=== PATIENT | female | born 1960 | race Caucasian/White ===

== ENCOUNTER 2023-09-14 21:17 | Inpatient (IN) | payer MEDICARE, OTHER ==
[~2023-09-14] VITALS: Ht 157.5 cm; Wt 83.0 kg
[~2023-09-14 21:17] MED LIST: BACL5TAB PO; BISA10SU95 RC; CALC-494 PO; DOCU100C36 PO; FIBER; MAGN400O6 PO; MULT-594 PO; NA P133E RC
[2023-09-14] MEDS ORDERED: MAG355OR18 PO (21:41)
[2023-09-14] MEDS ORDERED: BISA10SU61 RC (21:41)
[2023-09-14] MEDS ORDERED: DIVA500T2 PO (21:41)
[2023-09-14] MEDS ORDERED: HALO50AM6 IM (21:41)
[2023-09-14] MEDS ORDERED: CLON0.5T4 PO (21:41)
[2023-09-14] MEDS ORDERED: OLAN5TAB3 PO (21:41)
[2023-09-14] MEDS ORDERED: PROP10TA10 PO (21:41)
[2023-09-14] MEDS ORDERED: cogentin PO (21:41)
[2023-09-14] MEDS ORDERED: ACET325T53 PO (21:41)
[2023-09-14] MEDS ORDERED: MAGN400O6 PO (21:41)
[2023-09-14] MEDS ORDERED: MAG HYDROX/AL HYDROX/SIMETH 30 ML LIQUID UDC PO PRN ×2 (21:45→22:30)
[2023-09-14] MEDS ORDERED: MAGNESIUM HYDROXIDE 30 ML LIQUID UDC PO PRN ×3 (21:45→22:30)
[2023-09-14] MEDS ORDERED: ACETAMINOPHEN 325 MG TABLET PO PRN (21:45)
[2023-09-14] MEDS ORDERED: LORAZEPAM 1 MG TABLET PO PRN (21:45)
[2023-09-14 21:50] VITALS: BP 126/64; TEMP 97.8; O2SAT 100
[2023-09-14] MEDS: BLOOD SUGAR DIAGNOSTIC 1 EACH STRIP VI ONE (22:07)
[2023-09-14] MEDS ORDERED: FLEET ENEMA 133 ML BOTTLE RC PRN (22:30)
[2023-09-14] MEDS ORDERED: ACETAMINOPHEN 325 MG TABLET-SA PATIENTS-PAIN ONLY PO PRN (22:30)
[2023-09-14] MEDS ORDERED: BISACODYL 10 MG SUPP.RECT RC PRN ×2 (22:30)
[2023-09-15] MEDS ORDERED: HYDROXYZINE PAMOATE 25 MG CAPSULE PO PRN (08:00)
[2023-09-15 08:16] LABS: ALBUMIN 3.1 g/dL (3.4-5.0); BILIRUBIN,TOTAL 0.3 mg/dL (0.2-1.0); CALCIUM 9.1 mg/dL (8.5-10.1); CREATININE 0.7 mg/dL (0.6-1.3); POTASSIUM 4.2 mmol/L (3.5-5.1); TOTAL PROTEIN, SERUM 7.2 g/dL (6.4-8.2)
[2023-09-15 08:19] VITALS: BP 129/53; TEMP 98.6; O2SAT 98
[2023-09-15] MEDS: BACLOFEN 10 MG TABLET PO SCH (08:40)
[2023-09-15] MEDS: MULTIVITAMINS,THERAPEUTIC TABLET PO SCH (08:40)
[2023-09-15] MEDS: risperiDONE 2 MG TABLET PO SCH (08:41)
[2023-09-15] MEDS: DIVALPROEX 500 MG TABLET.DR PO SCH (08:47)
[2023-09-15] MEDS: BENZTROPINE MESYLATE 0.5 MG TABLET PO SCH (08:47)
[2023-09-15] MEDS: CLONAZEPAM 0.5 MG TABLET PO SCH (08:47)
[2023-09-15] MEDS: DOCUSATE SODIUM 250 MG CAPSULE PO SCH (09:00)
[2023-09-15] MEDS: PROPRANOLOL HCL 10 MG TABLET PO SCH (09:00)
[2023-09-15] MEDS ORDERED: DOCUSATE SODIUM 100 MG CAPSULE PO SCH (09:00)
[2023-09-15] MEDS: CALCIUM CARBONATE 500 MG TABLET PO SCH (09:19)
[2023-09-15] MEDS ORDERED: FLEET ENEMA 133 ML BOTTLE RC PRN (14:23)
[2023-09-15 16:03] VITALS: BP 103/57; TEMP 98.4; O2SAT 98
[2023-09-15 19:33] VITALS: BP 130/60; TEMP 98.1; O2SAT 96
[2023-09-15] MEDS: CEphaleXIN 500 MG CAPSULE PO SCH (20:29)
[2023-09-16 07:56] VITALS: BP 127/95; TEMP 98; O2SAT 98
[2023-09-16] MEDS ORDERED: BACLOFEN 10 MG TABLET PO SCH (09:00)
[2023-09-16] MEDS ORDERED: ACET-2605 PO (10:35)
[2023-09-16 15:20] VITALS: BP_SYST 104; BP_SYST 142; BP_DIAS 64; BP_DIAS 66; TEMP 98; O2SAT 98
[2023-09-16] MEDS: BACLOFEN 10 MG TABLET PO SCH (17:00)
[2023-09-16 19:54] VITALS: BP 136/68; TEMP 98.2; O2SAT 98
[2023-09-17 07:30] VITALS: BP 96/55; TEMP 98; O2SAT 98
[2023-09-17] MEDS: HALOPERIDOL LACTATE 5 MG/1 ML VIAL IM PRN (08:08)
[2023-09-17] MEDS: diphenhydrAMINE 50 MG/1 ML VIAL IM PRN (08:08)
[2023-09-17 15:27] VITALS: BP 106/52; TEMP 98.2; O2SAT 95
[2023-09-17 20:00] VITALS: BP 129/88; TEMP 98; O2SAT 97
[2023-09-18 08:06] VITALS: BP 130/55; TEMP 98; O2SAT 98
[2023-09-18] MEDS: risperiDONE 2 MG TABLET PO SCH (09:27)
[2023-09-18 15:41] VITALS: BP 139/92; TEMP 98; O2SAT 92
[2023-09-18 20:00] VITALS: BP 113/54; TEMP 98; O2SAT 98
[2023-09-19 07:49] VITALS: BP 132/67; TEMP 98; O2SAT 98
[2023-09-19 14:45] VITALS: BP 124/67; TEMP 98.2; O2SAT 92
[2023-09-19] MEDS: CLOTRIMAZOLE 1% CREAM 30 GM TUBE TOP SCH (17:52)
[2023-09-19 19:55] VITALS: BP 104/50; TEMP 98; O2SAT 99
[2023-09-20 07:53] VITALS: BP 122/67; TEMP 97.8; O2SAT 96
[2023-09-20 16:17] VITALS: BP 110/73; TEMP 97.9; O2SAT 96
[2023-09-20 20:41] VITALS: BP 121/72; TEMP 98; O2SAT 98
[2023-09-21 07:55] VITALS: BP 127/72; TEMP 97.7; O2SAT 97
[2023-09-21] MEDS: DIVALPROEX 500 MG TABLET.DR PO SCH (08:13)
[2023-09-21] MEDS: risperiDONE 2 MG TABLET PO SCH (08:15)
[2023-09-21] MEDS: BENZTROPINE MESYLATE 0.5 MG TABLET PO SCH (08:16)
[2023-09-21 16:06] VITALS: BP 123/87; TEMP 97.9; O2SAT 96
[2023-09-21 19:58] VITALS: BP 126/69; TEMP 98.2; O2SAT 98
[2023-09-22 08:00] VITALS: BP 102/54; TEMP 98.2; O2SAT 97
[2023-09-22] MEDS: DIVALPROEX 125 MG TABLET.DR PO SCH (13:04)
[2023-09-22 16:19] VITALS: BP 126/69; TEMP 98.1; O2SAT 97
[2023-09-22 19:42] VITALS: BP 112/51; TEMP 98.2; O2SAT 96
[2023-09-22] MEDS: OLANZAPINE 5 MG TABLET PO ONE (20:23)
[2023-09-22] MEDS: ZOLPIDEM 5 MG TABLET PO PRN (21:51)
[2023-09-22] MEDS: ACETAMINOPHEN 325 MG TABLET PO PRN (21:51)
[2023-09-23 08:00] VITALS: BP 132/68; TEMP 98; O2SAT 98
[2023-09-23] MEDS: OLANZAPINE 5 MG TABLET PO SCH (08:38)
[2023-09-23] MEDS: HALOPERIDOL DECANOATE 50 MG/1 ML AMPUL IM SCH (08:40)
[2023-09-23 15:48] VITALS: BP 115/68; TEMP 97.8; O2SAT 99
[2023-09-23 19:39] VITALS: BP 130/64; TEMP 97.8; O2SAT 96
[2023-09-24 07:52] VITALS: BP 113/52; TEMP 98; O2SAT 99
[2023-09-24 15:08] VITALS: BP 127/83; TEMP 98; O2SAT 98
[2023-09-24 19:39] VITALS: BP 130/72; TEMP 98.1; O2SAT 96
[2023-09-25 08:51] VITALS: BP 138/64; TEMP 98.2; O2SAT 98
[2023-09-25] MEDS: SERTRALINE HCL 50 MG TABLET PO SCH (11:10)
[2023-09-25 15:09] VITALS: BP 96/53; TEMP 98; O2SAT 98
[2023-09-25 19:57] VITALS: BP 111/56; TEMP 98.1; O2SAT 96
[2023-09-26 08:00] VITALS: BP 95/65; TEMP 98; O2SAT 98
[2023-09-26 15:34] VITALS: BP 122/50; TEMP 98.2; O2SAT 98
[2023-09-26 20:03] VITALS: BP 109/46; TEMP 98.3; O2SAT 97
[2023-09-27 07:59] VITALS: BP 165/63; TEMP 97.6; O2SAT 97
[2023-09-27] MEDS: OLANZAPINE 5 MG TABLET PO SCH (13:07)
[2023-09-27 16:30] VITALS: BP 99/53; TEMP 97.7; O2SAT 97
[2023-09-27 20:35] VITALS: BP 136/64; TEMP 98; O2SAT 98
[2023-09-28 08:22] VITALS: BP 91/48; TEMP 98.3; O2SAT 97
[2023-09-28 16:16] VITALS: BP 115/54; TEMP 98.3; O2SAT 97
[2023-09-28 20:08] VITALS: BP 112/68; TEMP 98.2; O2SAT 96
[2023-09-28] MEDS: DIVALPROEX 500 MG TABLET.DR PO SCH (21:20)
[2023-09-29 08:04] VITALS: BP 130/61; TEMP 98.2; O2SAT 97
[2023-09-29 08:58] VITALS: BP 130/61
== END 2023-09-29 13:00 | DRG 885 ==
LOC: ER 21:23 → GPS 21:24
PROVIDERS: ADMIT Psychiatry & Neurology Psychiatry; ATTEND Nurse Practitioner Acute Care
DX: F20.0 Paranoid schizophrenia (principal); R45.851 Suicidal ideations; E44.1 Mild protein-calorie malnutrition; E88.09 Other disorders of plasma-protein metabolism, not elsewhere classified; G89.4 Chronic pain syndrome; J44.9 Chronic obstructive pulmonary disease, unspecified; K59.09 Other constipation; I10 Essential (primary) hypertension; F03.90 Unspecified dementia, unspecified severity, without behavioral disturbance, psychotic disturbance, mood disturbance, and anxiety; E66.9 Obesity, unspecified; R79.89 Other specified abnormal findings of blood chemistry; G62.9 Polyneuropathy, unspecified; Z88.0 Allergy status to penicillin; Z87.440 Personal history of urinary (tract) infections; Z79.899 Other long term (current) drug therapy; Z68.33 Body mass index [BMI] 33.0-33.9, adult; Z91.148 Patient's other noncompliance with medication regimen for other reason
CPT/HCPCS: 36415; 80164; 93005; 94640; J1200; J1630; J1631